=== PATIENT | female | born 1980 | race Caucasian/White ===

== ENCOUNTER 2023-12-26 17:43 | Emergency (ER) | payer OTHER, SELFPAY ==
--- NOTE | 2023-12-26 17:54 | PC.NURSE ---
in br to obtain ua spec.
[2023-12-26 17:56] VITALS: BP 232/113; PULSE 115; RESP 24; TEMP 36.7; O2SAT 100
--- NOTE | 2023-12-26 17:58 | ED.FEMALEGU ---
HPI - Female Genitourinary General Chief complaint: Urogenital-Female Stated complaint: Poss UTI Time Seen by Provider: 12/26/23 18:04 Source: patient, RN notes reviewed and old records reviewed Mode of arrival: ambulatory Limitations: no limitations History of Present Illness HPI Narrative: 43 year old female who presents to [facility] care with complaints of UTI symptoms for the past 3 days which includes painful urination, frequency, lower abdominal pain. Patient has elevated blood pressure reports she was hospitalized at [facility] last part of September for elevated blood pressure and was discharged on medication but she can't get into provider till February and has been only taking her blood pressure medication either every other or every 2 days for the past 3 weeks because she is afraid of running out before her appointment. Patient denies any blurred vision, headache, dizziness or any nausea or palpitations or edema.Patient reports that she has been on menses for the past month going through 4 pads daily, is on iron daily. MD elicited complaint: UTI and other (hypertension) Onset (ago): day(s) (3) Severity scale (1-10): 6 Quality of pain: burning and other (lower abdominal suprapubic) Vaginal bleeding: moderate Related Data Home Medications Medication Instructions Recorded Confirmed amlodipine 5 mg tablet mg 12/26/23 ferrous sulfate 325 mg (65 mg mg 12/26/23 iron) tablet (FeroSul) lisinopril 20 mg tablet mg 12/26/23 Allergies Allergy/AdvReac Type Severity Reaction Status Date / Time No Known Allergies Allergy Verified 12/26/23 17:48 Review of Systems Review of Systems: CONSTITUTIONAL: Denies fever, chills, or sweats. CARDIOVASCULAR: Denies chest pain, palpitations, or edema. RESPIRATORY: Denies cough or dyspnea. GASTROINTESTINAL: Denies abdominal pain, nausea, vomiting, or diarrhea. GENITOURINARY: Reports dysuria, frequency, urgency. Denies flank pain or visible hematuria.did take AZO SKIN: Denies rash or itching. MUSCULOSKELETAL: Denies back pain or myalgia. Denies CVA tenderness NEUROLOGIC: Denies headache All systems reviewed & are unremarkable except as noted in HPI and below PMFSH Past Medical History Medical History (Updated 12/27/23 @ 23:20 by Ester Dolan NP) Anemia Hypertension Urinary tract infection Social History Social History (Updated 12/26/23 @ 19:27 by Ester Dolan NP) Smoking status: Never smoker Alcohol intake: current Alcohol use details: rare alcohol use Substance use type: does not use Gender identity (if verbalized by the patient): Female Comments At time of signature, agree with nursing past medical, surgical, social and family history. There is no relevant family history pertinent to the presenting complaint Exam Narrative: GENERAL: Well-appearing, well-nourished,obese, and in no some acute distress, related to urinary pain HEAD: Normocephalic, atraumatic.. NECK: Supple.no lymphadenopathy CHEST: Clear to auscultation. No respiratory distress.SAO2 100% on room air HEART: Regular rate and rhythm. No murmur heard. Normal peripheral pulses. ABDOMEN: Soft, tender to lower abdomen suprapubic area, nondistended, normal active bowel sounds. No CVA tenderness, positive for pain and burning with urination,frequency, urgency EXTREMITIES: Normal range of motion. No edema. SKIN: Warm, dry, no rash. NEURO: No focal deficits. Alert and oriented x3. denies any dizziness, headache, visual blurring, chest pain or any palpitations. Course Course Emergency Course: Patient is aware of diagnosis, understands and agrees to treatment plan.? Anticipatory guidance given.? Patient agrees to follow-up as directed and is aware of reasons to seek care at the emergency department. Portions of this record may have been created with voice recognition software Level of Care: Express Care Visit Vital Signs Vital signs: Vital Signs Temperature 36.7 C 12/26/23
[2023-12-26 18:00] VITALS: BP 230/120; BP 240/130
[2023-12-26] MEDS: ACETAMINOPHEN 500 MG TABLET PO (18:35)
[2023-12-26] MEDS: cloNIDine HCL 0.1 MG TABLET PO (18:35)
[2023-12-26 19:37] VITALS: BP 240/130; PULSE 115; RESP 24; TEMP 36.7; O2SAT 100
--- NOTE | 2023-12-26 19:44 | PC.NURSE ---
1941 bp rechecked, manual left arm, 160/100
[2023-12-26 19:52] LABS: EDUAAPPEAR Clear; EDUABILI Negative; EDUABLOOD 3+; EDUACOLOR1 Bright; EDUAGLUCOSE Negative; EDUAKETONE Negative; EDUALEUKO 2+; EDUANITRATE Positive; EDUAPH 5.5; EDUAPROTEIN Trace; EDUAUROBILI 0.2
== END 2023-12-26 19:47 | disposition home or self-care (01) ==
PROVIDERS: Emergency Provider Registered Nurse
DX: N39.0 Urinary tract infection, site not specified (principal); I10 Essential (primary) hypertension; B96.20 Unspecified Escherichia coli [E. coli] as the cause of diseases classified elsewhere
CPT/HCPCS: 81003; 87077; 87086; 87088; 87186; 99203; A9270; G0463